=== PATIENT | male | born 1975 | race Caucasian/White ===

== ENCOUNTER 2024-02-11 18:22 | Emergency (ER) | payer OTHER, SELFPAY ==
[2024-02-11 18:23] VITALS: BP 140/90; PULSE 84; RESP 16; TEMP 36.7; O2SAT 95; BMI 34.7
--- NOTE | 2024-02-11 18:42 | EKG12_ITS ---
Test Reason : DYSRHYTHMIA Blood Pressure : / mmHG Vent. Rate : 086 BPM Atrial Rate : 086 BPM P-R Int : 136 ms QRS Dur : 106 ms QT Int : 380 ms P-R-T Axes : 041 057 014 degrees QTc Int : 454 ms Normal sinus rhythm ST & T wave abnormality, consider inferior ischemia ST & T wave abnormality, consider anterolateral ischemia Abnormal ECG No previous ECGs available Confirmed by CA PETERSEN, JEANETTE ([id number]), social media editor BILLIE ROTHMAN ([id number]) on 02/15/2024 11:29:41 AM Referred By: Confirmed By:JEANETTE PENALOZA MD
--- NOTE | 2024-02-11 18:45 | EDS_ITS ---
HPI <GABE Mullen - Last Filed: 02/11/24 19:53> History of Present Illness Chief Complaint: Syncope Narrative Narrative: Patient is a 48-year-old male with history of depression who presents to the emergency department for passing out after coughing. Patient states has been sick for the last couple days, he went to urgent care today, was placed on a Z- Ivan as well as some Tessalon Perles. Patient has had 2 episodes that were witnessed where he coughed so hard he has a syncopal episode. The is concerned and is here for evaluation. Patient Nuys any fever chills nausea or vomiting. PFSH <GABE Mullen - Last Filed: 02/11/24 19:53> [facility] Medical History (Updated 02/11/24 @ 19:51 by GABE Mullen) Sleep apnea Major depression Hand fracture Hypertension Asthma Home Medications ?Medication ?Instructions ?Recorded ?Last Taken ?Type diltiazem HCl 180 mg 180 mg PO DAILY 04/30/23 Unknown History capsule,extended release 24 hr levothyroxine 75 mcg tablet mcg PO 04/30/23 Unknown History loratadine 10 mg tablet (Claritin) 10 mg PO DAILY 04/30/23 Unknown History omeprazole 40 mg capsule,delayed 40 mg PO DAILY 04/30/23 Unknown History release fluoxetine 40 mg capsule 40 mg PO DAILY 90 days #90 caps 02/01/24 Unknown Rx lamotrigine 100 mg tablet 250 mg (2.5 x 100 mg) PO DAILY 90 02/01/24 Unknown Rx days #225 tabs albuterol sulfate 90 mcg/actuation 2 puff inhalation Q4H PRN PRN 02/11/24 Unknown Rx aerosol inhaler (Ventolin HFA) Wheezing #1 pump Allergy/AdvReac Type Severity Reaction Status Date / Time Penicillins Allergy Severe Swelling Verified 02/11/24 18:25 Family History Other Asthma Hypertension Mental disorder Surgical History Hx of appendectomy Social History Smoking Status: Never smoker alcohol intake: never substance use type: does not use what type of physical activity do you participate in: none ROS <GABE Mullen - Last Filed: 02/11/24 19:53> ROS ED ROS Narrative Constitutional: Negative for fever, chills, weight loss, weakness Eyes: Negative for vision loss, vision change, double vision ENT: Negative for any sore throat, ear pain, congestion Cardiovascular: Negative for any chest pain, tightness, palpitations Respiratory: Negative for any sputum production, hemoptysis, dyspnea, dyspnea on exertion, orthopnea. Positive for cough Gastrointestinal: Negative for any abdominal pain, nausea, vomiting, diarrhea, constipation, blood in stool, blood in vomit : Negative for any urinary frequency, dysuria, retention, blood in urine Muscle skeletal: Negative for any neck pain, back pain Neurological: Negative for any headache,dizziness. Positive for cough, syncope Skin: Negative for any rashes, itching, abrasions, lacerations Psychiatric: Negative for any depression, anxiety, stress, suicidal ideation, homicidal ideation Hematologic: Negative for any excessive bruising, easy bleeding EXAM <GABE Mullen - Last Filed: 02/11/24 19:53> Physical Exam Narrative Exam Narrative: Vital signs reviewed. HEET: Head normocephalic atraumatic, TMs clear bilaterally. Posterior pharynx is clear, moist mucous membranes. Nares clear bilaterally. Neck: Supple with no lymphadenopathy or tenderness. No signs of meningismus. Cardiac: Regular rate and rhythm no murmurs gallops or rubs, equal peripheral pulses bilaterally. Respiratory: Lungs clear to auscultation bilaterally. No chest tenderness. Abdomen: Soft, nontender, nondistended. No abdominal bruit or pulsatile masses. No hepatosplenomegaly Extremities: No peripheral edema, no signs of gross trauma or deformity. Active full range of motion of all extremities. Neuro: Cranial nerves II through XII intact, no focal neurological deficits. Skin: Clean dry and intact with no rash, purpura, petechiae, vesicles or pustul es. Backs/flank: No CVA tenderness, no midline spinal tenderness, no deformity. Psych: Normal mood and affect. No SI, HI or acute psychosis. Const Vital Signs: 02/11/24 18:23 02/11/24 19:01 02/11/24 19:02 Temperature 98.1 F Temperature Source Temporal Pulse Rate 84 Respiratory Rate 16 Respiratory Effort Normal Non-Labored Respiratory Pattern Normal Blood Pressure 140/90 H Blood Pressure Mean 106 Pulse Ox 95 Oxygen Delivery Method Room Air Room Air <Dr. Lew Tineo MD - Last Filed: 02/11/24 19:14> Physical Exam Const Vital Signs: 02/11/24 18:23 02/11/24 19:01 02/11/24 19:02 Temperature 98.1 F Temperature Source Temporal Pulse Rate 84 Respiratory Rate 16 Respiratory Effort Normal Non-Labored Respiratory Pattern Normal Blood Pressure 140/90 H Blood Pressure Mean 106 Pulse Ox 95 Oxygen Delivery Method Room Air Room Air MDM <GABE Mullen - Last Filed: 02/11/24 19:53> [facility] [place] Lab Data Labs: Laboratory Results - last 24 hr 02/11/24 18:57 WBC 10.0 RBC 5.14 Hgb 14.1 Hct 42.5 MCV 82.7 MCH 27.4 MCHC 33.2 RDW Std Deviation 43.5 RDW Coeff of Gigi 14.5 Plt Count 313 MPV 9.2 Immature Gran % (Auto) 0.600 Neut % (Auto) 60.1 Lymph % (Auto) 25.1 [place] % (Auto) 8.5 Eos % (Auto) 5.0 Baso % (Auto) 0.7 Absolute Neuts (auto) 6.0 Absolute Lymphs (auto) 2.51 Nucleated RBC % 0 Sodium 137 Potassium 3.7 Chloride 107 Carbon Dioxide 25.0 Anion Gap 5 BUN 22 H Creatinine 0.99 Estim Creat Clear Calc 110.98 Est GFR (MDRD) Af Amer 103 Est GFR (MDRD) Non-Af 86 BUN/Creatinine Ratio 22.1 H Glucose 144 H Calcium 8.7 Troponin I High Sens 21 EKG EKG shows normal sinus rhythm: Attestation: I personally reviewed and interpreted this EKG as follows: Comments: Normal sinus rhythm, rate of 86 bpm, OK 136 ms, QRS duration 26 ms, no acute ST elevation, no acute infarct noted. Treatment and Re-Evaluation :: Differential diagnosis includes however is not limited to: Posttussive syncope, cardiac arrhythmia, ACS, CO, pneumonia Patient appears to be in no obvious respiratory distress, vital signs are stable. Patient presents to the emergency department with complaints of posttussive syncope x 2. Diagnosed with pneumonia earlier today, placed on Z- Ivan as well as cough suppressant. Patient will receive a cardiac workup to ensure that there is no arrhythmia, cardiac reason for syncope, two-view chest x-ray will be obtained. Breathing treatments will be ordered. All radiologic examinations were read, reviewed by the emergency department attending. From these reads, a plan of care will be put in place. Patient's chest x-ray does show some haziness left lower lobe, this is what they called at the urgent care. Patient's laboratory values were normal CBC, chemistries were unremarkable, troponin was negative. EKG was unremarkable. No evidence of cardiopulmonary disease. At this time, I do believe the patient is suffering from pertussis syncope. Patient will receive an albuterol inhaler. Instructed return for any worsening symptoms. Patient will follow-up outpatient. <Dr. Lew Tineo MD - Last Filed: 02/11/24 19:14> [facility] Narrative Medical decision making narrative: I have personally performed a face to face assessment of the patient and have reviewed the LEONORA Note. I performed a substantive portion of the visit including all aspects of the following. My weldon findings include: History is [48-year-old male diagnosed with pneumonia today placed on Zithromax. Also has had cough syncope x 2. He is also had that in the past. Does not necessarily new today. Denies any chest pain. Denies any vomiting or diarrhea.] Exam is [well-appearing middle-age male. Vital signs stable afebrile. Pulse ox 95% on room air no hypoxia. H EENT exam unremarkable. Moist use membranes. Lungs coarse breath sounds. No rales or rhonchi. Heart regular rhythm rate about 80 no murmur. Chest wall and ribs nontender. Abdomen soft nontender. Moving all 4 extremities. Calves are nontender without edema or cords. Neurologically is awake and alert no focal motor deficits. Answering questions following commands. Normal motor strength.] Medical Decision Making [48-year-old male being evaluated for possible pneumonia. Chest x-ray and labs are pending. Other additions or changes: [None] Lab Data Labs: Laboratory Results - last 24 hr 02/11/24 18:57 WBC 10.0 RBC 5.14 Hgb 14.1 Hct 42.5 MCV 82.7 MCH 27.4 MCHC 33.2 RDW Std Deviation 43.5 RDW Coeff of Gigi 14.5 Plt Count 313 MPV 9.2 Immature Gran % (Auto) 0.600 Neut % (Auto) 60.1 Lymph % (Auto) 25.1 [place] % (Auto) 8.5 Eos % (Auto) 5.0 Baso % (Auto) 0.7 Absolute Neuts (auto) 6.0 Absolute Lymphs (auto) 2.51 Nucleated RBC % 0 Sodium 137 Potassium 3.7 Chloride 107 Carbon Dioxide 25.0 Anion Gap 5 BUN 22 H Creatinine 0.99 Estim Creat Clear Calc 110.98 Est GFR (MDRD) Af Amer 103 Est GFR (MDRD) Non-Af 86 BUN/Creatinine Ratio 22.1 H Glucose 144 H Calcium 8.7 Troponin I High Sens 21 Radiography Chest X-Ray - ED: 1 View and Read by ED Physician Discharge Plan Triage Chief Complaint: Syncope ED Midlevel Provider: Maurilio Christensen ED Provider: Lew Tineo Dx/Rx/DC Orders Clinical Impression: Cough, Syncope Instructions: Causes of Syncope, ED Cough Chronic Uncertain Cause Adult Prescriptions: New albuterol sulfate [Ventolin HFA] 90 mcg/actuation HFA aerosol inhaler 2 puff inhalation Q4H PRN PRN (Reason: Wheezing) Qty: 1 0RF No Action levothyroxine 75 mcg tablet PO diltiazem HCl 180 mg capsule,extended release 24hr 180 mg PO DAILY omeprazole 40 mg capsule,delayed release(DR/EC) 40 mg PO DAILY loratadine [Claritin] 10 mg tablet 10 mg PO DAILY fluoxetine 40 mg capsule 40 mg PO DAILY 90 Days Qty: 90 1RF lamotrigine 100 mg tablet 250 mg PO DAILY 90 Days Qty: 225 1RF Primary Care Provider: Godwin Mcghee Referrals: Care Physician,No Primary [Non-Staff] - Print Language: Brazilian Disposition Disposition: Home, Self Care
[2024-02-11 18:50] VITALS: PULSE 93; RESP 16
[2024-02-11] MEDS: Ipratropium/Albuterol Sulfate 3 ML AMPUL.NEB INHALATION (18:50)
[2024-02-11] MEDS: Albuterol 2.5 MG/3 ML VIAL.NEB. INHALATION ×3 (18:57→19:17)
[2024-02-11 19:06] LABS: Absolute Lymphocyte Count 2.51 X10^3/uL (0.83-4.51); Basophil# 0.07 X10^3/uL; Basophil% 0.7 % (0-1); Hematocrit 42.5 % (40-54); Hemoglobin 14.1 g/dL (13.0-16.5); Lymphocyte # 2.51 X10^3/ul (0.83-4.51); Lymphocyte % 25.1 % (19-41); Mean Corp Hgb Conc 33.2 g/dL (32-36); Mean Corpuscular Hgb 27.4 pg (27.0-32.0); Mean Corpuscular Volume 82.7 fL (80-94); Mean Platelet Vol. 9.2 fl (6.2-12.0); Monocyte# 0.85 X10^3/uL; Monocyte% 8.5 % (0-10); NRBC Flagged by Analyzer 0 % (0-5); Neutrophil # 6.01 X10^3/uL (2.7-7.7); Neutrophil % 60.1 % (47-70); Platelet Count 313 K/mm3 (150-450); RBC Distribution Width CV 14.5 % (11.6-14.6); RBC Distribution Width SD 43.5 fl (35.1-43.9); Red Blood Count 5.14 M/mm3 (4.6-6.2)
[2024-02-11 19:34] LABS: Anion Gap 5 (5-15); BUN 22 mg/dL (7-18); BUN/Creat Ratio 22.1 RATIO (10-20); Calcium,Total 8.7 mg/dL (8.5-10.1); Chloride 107 mmol/L (98-107); Creatinine, Serum 0.99 mg/dL (0.70-1.30); EST Glomerular Filtration Rate 86 mL/min (>60); Est Glom Filt Rate - Afr Amer 103 mL/min (>60); Estimated Creatinine Clearance 110.98 ml/min; Glucose 144 mg/dL (74-106); Potassium 3.7 mmol/L (3.5-5.1); Sodium Level 137 mmol/L (136-145); Troponin-I HS 21 pg/mL (3.0-78.0)
--- NOTE | 2024-02-11 19:38 | RAD_ITS ---
STUDY: X-RAY CHEST REASON FOR EXAM: Male, 48 years old. cough TECHNIQUE: PA and lateral COMPARISON: None. FINDINGS: Elevated left hemidiaphragm and minor basilar atelectasis or scarring.. There is no demonstrated pleural abnormality. Normal size heart. Normal mediastinum and karen. Normal visualized pulmonary arteries. Normal visualized aortic arch and descending thoracic aorta. Normal visualized thoracic spine. Normal visualized ribs, clavicles, and shoulders. Nonspecific bowel distention within the upper abdomen. RAD/Chest PA and Lateral IMPRESSION: Elevated left hemidiaphragm and minor basilar atelectasis or scarring in the left lower lobe.. Electronically Signed: Bam Guthrie MD at 19:51 EDT ,
[2024-02-11 19:54] VITALS: BP 140/88; PULSE 90; RESP 19; TEMP 36.8; O2SAT 94
--- NOTE | 2024-02-11 19:57 | CPS ---
x3 Albuterol given to pt. in ER as well
== END 2024-02-11 20:00 | disposition home or self-care (01) ==
PROVIDERS: Nurse Practitioner; Emergency Provider Emergency Medicine; PCP Family Medicine; Visit Provider Emergency Medicine
DX: R55 Syncope and collapse (principal); R05.9 Cough, unspecified; I10 Essential (primary) hypertension; F32.A Depression, unspecified; J45.909 Unspecified asthma, uncomplicated
CPT/HCPCS: 71046; 80048; 84484; 85025; 93005; 94640; 99285; A4216

== ENCOUNTER 2024-02-19 12:42 | Emergency (ER) | payer OTHER, SELFPAY ==
[2024-02-19 12:43] VITALS: BP 157/110; PULSE 92; RESP 16; TEMP 36.9; O2SAT 97; BMI 34.7
--- NOTE | 2024-02-19 12:52 | CT_ITS ---
STUDY: CT BRAIN WITHOUT CONTRAST REASON FOR EXAM: Male, 48 years old. Head injury RADIATION DOSAGE (If Supplied By Facility): CTDIvol = ( 47.06 ) mGy, DLP = ( 855.03 ) mGycm TECHNIQUE: Transaxial CT imaging of the brain was performed without administration of intravenous contrast material. Individualized dose optimization techniques were used for this CT. COMPARISON: No relevant priors. FINDINGS: Normal soft tissue structures. Normal calvarium. Normal size ventricles and extra-axial spaces for the patient''s age. Normal white matter tracts of the cerebral hemispheres. Normal basal ganglia and thalami. Normal brainstem. Normal cerebellum. There is no intracranial hemorrhage. There are no findings of an acute ischemic infarction. Partial opacification of the maxillary sinuses and ethmoid sinuses. CT/Brain/Head without Contrast IMPRESSION: Normal unenhanced CT scan of the brain. Partial opacification of maxillary and ethmoid sinuses. Electronically Signed: Alexander Jj MD at 13:28 EDT ,
--- NOTE | 2024-02-19 12:54 | CT_ITS ---
STUDY: CT CERVICAL SPINE WITHOUT CONTRAST REASON FOR EXAM: Male, 48 years old. Neck pain RADIATION DOSAGE (If Supplied By Facility): CTDIvol = ( 19.14 ) mGy, DLP = ( 409.43 ) mGycm TECHNIQUE: High resolution transaxial imaging was performed without contrast material. Sagittal and coronal images were reconstructed. Individualized dose optimization techniques were used for this CT. COMPARISON: None FINDINGS: Normal craniovertebral junction. Normal anterior atlantoaxial articulation. Normal odontoid process. There is straightening of the normal cervical lordosis. Normal vertebral bodies and posterior osseous elements. C2-3: Normal endplates. Normal disc height and morphology. Normal central canal and intervertebral neuroforamina. C3-4: Normal endplates. Normal disc height and morphology. Normal central canal and intervertebral neuroforamina. C4-5: Normal endplates. Normal disc height and morphology. Normal central canal and intervertebral neuroforamina. C5-6: Mild degree of disc space narrowing. Posterior spondylosis. No significant stenosis is seen. C6-7: Mild degree of disc space narrowing and spondylosis. No significant stenosis is seen. C7-T1: Normal endplates. Normal disc height and morphology. Normal central canal and intervertebral neuroforamina. Normal visualized soft tissue structures. CT/Spine Cervical without Contras IMPRESSION: Mild degenerative changes at the C5-C6 and C6-C7 levels. Electronically Signed: Alexander Jj MD at 13:51 EDT ,
--- NOTE | 2024-02-19 12:56 | EDS_ITS ---
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 He states he does not remember stumbling or tripping but woke up on the ground next to the truck. He has abrasions on his head and right ear. States he sat there for a while and then stood up and drove 30 minutes to a truck stop and called his to bring him in for evaluation. He denies any preceding symptoms this morning such as headache, chest pain, shortness of breath, or nausea or vomiting. He has had a recent URI states he coughed so much like a syncopal episode but the cough has been improving. He has a history of syncope in the past. He takes blood pressure medication. No blood thinners. [facility] <PABLO Brewer - Last Filed: 02/19/24 14:33> [facility] Medical History (Updated 02/19/24 @ 14:33 by PABLO Brewer) Sleep apnea Major depression Hand fracture Hypertension Asthma Home Medications ?Medication ?Instructions ?Recorded ?Last Taken ?Type levothyroxine 75 mcg tablet mcg PO 04/30/23 Unknown History loratadine 10 mg tablet (Claritin) 10 mg PO DAILY 04/30/23 Unknown History omeprazole 40 mg capsule,delayed 40 mg PO DAILY 04/30/23 Unknown History release fluoxetine 40 mg capsule 40 mg PO DAILY 90 days #90 caps 02/01/24 Unknown Rx lamotrigine 100 mg tablet 250 mg (2.5 x 100 mg) PO DAILY 90 02/01/24 Unknown Rx days #225 tabs albuterol sulfate 90 mcg/actuation 2 puff inhalation Q4H PRN PRN 02/11/24 Unknown Rx aerosol inhaler (Ventolin HFA) Wheezing #1 pump naproxen 500 mg tablet (Naprosyn) 500 mg PO BID PRN pain #20 tabs 02/19/24 Unknown Rx Allergy/AdvReac Type Severity Reaction Status Date / Time Penicillins Allergy Severe Swelling Verified 02/19/24 12:56 Family History Other Asthma Hypertension Mental disorder Surgical History Hx of appendectomy Social History Smoking Status: Never smoker alcohol intake: never substance use type: does not use what type of physical activity do you participate in: none ROS <PABLO Brewer - Last Filed: 02/19/24 14:33> ROS ED ROS Narrative Eyes: Negative for visual change. CVS: Negative for palpitations, chest pain. Respiratory: Negative for shortness of breath. GI: Negative for abdominal pain, nausea, vomiting. Neuro: Positive for headache. EXAM <PABLO Brewer - Last Filed: 02/19/24 14:33> Physical Exam Narrative Exam Narrative: CONST: Patient sitting in no acute distress. EYES: Normal inspection. PERRL, EOMI. ENT: Abrasion on the right parietal scalp and on the right external ear. No lacerations, no deformity or crepitus, no raccoon eyes or Burks sign, no epistaxis or nasal septal hematoma, no hemotympanum, no CSF otorrhea or rhinorrhea. NECK: Normal inspection. Cervical midline tenderness without step-offs. RESP: No respiratory distress, CTAB. Chest wall nontender. CVS: Regular rate and rhythm, no murmur, no gallop. ABD: Soft and nontender, no guarding or rebound, nondistended. Back: Normal inspection, no midline tenderness. SKIN: Color normal, warm, dry, intact. EXTREMITIES: Normal appearance of upper and lower extremities, full range of motion, mild tenderness right shoulder, 2+ radial and DP pulses. NEURO: Alert and answering questions appropriately. PSYCH: Normal affect. Const Vital Signs: 02/19/24 12:43 02/19/24 12:56 02/19/24 14:06 Temperature 98.4 F Temperature Source Temporal Pulse Rate 92 Pulse Rate [Lying] 80 Pulse Rate [Sitting (for 1 minute prior to obtaining)] 82 Pulse Rate [Standing (for 1 minute prior to obtaining)] 87 Respiratory Rate 16 Respiratory Effort Normal Non-Labored Respiratory Depth Normal Respiratory Pattern Normal Blood Pressure 157/110 H Blood Pressure [Lying] 138/98 H Blood Pressure [Sitting (for 1 minute prior to obtaining)] 135/99 H Blood Pressure [Standing (for 1 minute prior to obtaining)] 132/103 H Blood Pressure Mean 125 Blood Pressure Mean [Lying] 111 Blood Pressure Mean [Sitting (for 1 minute prior to obtaining)] 111 Blood Pressure Mean [Standing (for 1 minute prior to obtaining)] 112 Pulse Ox 97 Oxygen Delivery Method Room Air Room Air 02/19/24 14:43 Temperature 97.3 F L Temperature Source Pulse Rate 84 Pulse Rate [Lying] Pulse Rate [Sitting (for 1 minute prior to obtaining)] Pulse Rate [Standing (for 1 minute prior to obtaining)] Respiratory Rate 18 Respiratory Effort Respiratory Depth Respiratory Pattern Blood Pressure 141/102 H Blood Pressure [Lying] Blood Pressure [Sitting (for 1 minute prior to obtaining)] Blood Pressure [Standing (for 1 minute prior to obtaining)] Blood Pressure Mean 115 Blood Pressure Mean [Lying] Blood Pressure Mean [Sitting (for 1 minute prior to obtaining)] Blood Pressure Mean [Standing (for 1 minute prior to obtaining)] Pulse Ox 100 Oxygen Delivery Method <Dr. Victorino Ward, DO - Last Filed: 02/19/24 15:34> Physical Exam Const Vital Signs: 02/19/24 12:43 02/19/24 12:56 02/19/24 14:06 Temperature 98.4 F Temperature Source Temporal Pulse Rate 92 Pulse Rate [Lying] 80 Pulse Rate [Sitting (for 1 minute prior to obtaining)] 82 Pulse Rate [Standing (for 1 minute prior to obtaining)] 87 Respiratory Rate 16 Respiratory Effort Normal Non-Labored Respiratory Depth Normal Respiratory Pattern Normal Blood Pressure 157/110 H Blood Pressure [Lying] 138/98 H Blood Pressure [Sitting (for 1 minute prior to obtaining)] 135/99 H Blood Pressure [Standing (for 1 minute prior to obtaining)] 132/103 H Blood Pressure Mean 125 Blood Pressure Mean [Lying] 111 Blood Pressure Mean [Sitting (for 1 minute prior to obtaining)] 111 Blood Pressure Mean [Standing (for 1 minute prior to obtaining)] 112 Pulse Ox 97 Oxygen Delivery Method Room Air Room Air 02/19/24 14:43 Temperature 97.3 F L Temperature Source Pulse Rate 84 Pulse Rate [Lying] Pulse Rate [Sitting (for 1 minute prior to obtaining)] Pulse Rate [Standing (for 1 minute prior to obtaining)] Respiratory Rate 18 Respiratory Effort Respiratory Depth Respiratory Pattern Blood Pressure 141/102 H Blood Pressure [Lying] Blood Pressure [Sitting (for 1 minute prior to obtaining)] Blood Pressure [Standing (for 1 minute prior to obtaining)] Blood Pressure Mean 115 Blood Pressure Mean [Lying] Blood Pressure Mean [Sitting (for 1 minute prior to obtaining)] Blood Pressure Mean [Standing (for 1 minute prior to obtaining)] Pulse Ox 100 Oxygen Delivery Method [facility] <PABLO Brewer - Last Filed: 02/19/24 14:33> [facility] Narrative Medical decision making narrative: History gathered from: Patient and spouse Differential: Closed head injury, skull fracture, intracranial hemorrhage Patient fell and has a scalp abrasion and right shoulder injury. He is not clear why he fell but denies any preceding symptoms. Injury occurred over 2 hours ago. He is awake and alert and ambulated into the ED. GCS 15. He has chronic hypertension and vital signs are stable. There is a right scalp and ear abrasion with no lacerations or signs of basilar skull fracture. He is also tender over the right distal clavicle and shoulder with full range of motion and neurovascularly intact. No other injuries. CT scans of the head/neck are negative. Chest x-ray and right shoulder show no acute traumatic injuries. He was given tetanus, Tylenol, and Norflex. Wound was cleansed and bandaged. Patient had an ED visit a week ago after an episode of cough syncope I reviewed his labs at that time had normal CBC, BMP, troponin and EKG. orthostatic vital signs are negative. With a recent negative workup I don't think he needs repeat labs as he did not clearly syncopize today but he is not sure why he fell. I ordered a 48-hour Holter monitor which was placed at discharge and results will be sent to his primary care doctor. He was discharged in stable condition. Radiography Diagnostic Testing: Clinical Impression(s) from Imaging Studies Brain CT 02/19/24 12:52 IMPRESSION: Normal unenhanced CT scan of the brain. Partial opacification of maxillary and ethmoid sinuses. Electronically Signed: Alexander Jj MD at 13:28 EDT , Cervical Spine CT 02/19/24 12:54 IMPRESSION: Mild degenerative changes at the C5-C6 and C6-C7 levels. Electronically Signed: Alexander Jj MD at 13:51 EDT , Chest X-Ray 02/19/24 13:32 IMPRESSION: Stable examination. Mild linear atelectasis at the lung bases. Electronically Signed: Alexander Jj MD at 13:59 EDT , Shoulder X-Ray 02/19/24 13:32 IMPRESSION: Mild degree of arthrosis of the right glenohumeral joint. Electronically Signed: Alexander Jj MD at 13:58 EDT , ED attending interpretation of 2 view chest x-ray shows no evidence of displaced rib fracture or pneumothorax. ED attending interpretation of right shoulder shows no fracture or dislocation. <Dr. Victorino Ward, DO - Last Filed: 02/19/24 15:34> [facility] MDM Narrative Medical decision making narrative: History gathered from: Patient and spouse Differential: Closed head injury, skull fracture, intracranial hemorrhage Patient fell and has a scalp abrasion and right shoulder injury. He is not clear why he fell but denies any preceding symptoms. Injury occurred over 2 hours ago. He is awake and alert and ambulated into the ED. GCS 15. He has chronic hypertension and vital signs are stable. There is a right scalp and ear abrasion with no lacerations or signs of basilar skull fracture. He is also tender over the right distal clavicle and shoulder with full range of motion and neurovascularly intact. No other injuries. CT scans of the head/neck are negative. Chest x-ray and right shoulder show no acute traumatic injuries. He was given tetanus, Tylenol, and Norflex. Wound was cleansed and bandaged. Patient had an ED visit a week ago after an episode of cough syncope I reviewed his labs at that time had normal CBC, BMP, troponin and EKG. orthostatic vital signs are negative. With a recent negative workup I don't think he needs repeat labs as he did not clearly syncopize today but he is not sure why he fell. I ordered a 48-hour Holter monitor which was placed at discharge and results will be sent to his primary care doctor. He was discharged in stable condition. This patient was seen with a PA/INTAKE COUNSELOR Individually assessed they patient including history and physical. I have reviewed everything on the chart that is available and agree with the documentation provided by the PA/INTAKE COUNSELOR including discussion about the assessment, treatment plan, discussion, and return precautions. Pablo valentínjohnny presenting after falling out of a truck. He states this is a tractor- trailer. He is not sure exactly why he fell but he does have a history of coughing and syncope. He does not know if he coughed and fainted and is amnestic of the event because he hit his head. Patient was recently treated for pneumonia with antibiotics and feels better overall. He has not had any chest pain or shortness of breath. He does have an abrasion to the scalp on the right side and no other evidence of basilar skull fracture. Is alert and awake with a GCS of 15. He had some right-sided neck pain but nothing midline and there are no deformities of the cervical spine. Also has tenderness to palpation of the posterior right shoulder but no evidence of rotator cuff tear and his shoulder is stable. Full range of motion. Obtained images of the right shoulder and chest x-ray. On my interpretation both these are negative. CT brain and cervical spine were obtained and these were both negative as well for acute findings.. Orthostatic vital signs are negative although patient has headache and the feeling of dizziness when he stands up and I do believe he has a concussion. Despite further patient stable for discharge. UTI recommended Tylenol and ibuprofen. Radiography Diagnostic Testing: Clinical Impression(s) from Imaging Studies Brain CT 02/19/24 12:52 IMPRESSION: Normal unenhanced CT scan of the brain. Partial opacification of maxillary and ethmoid sinuses. Electronically Signed: Alexander Jj MD at 13:28 EDT , Cervical Spine CT 02/19/24 12:54 IMPRESSION: Mild degenerative changes at the C5-C6 and C6-C7 levels. Electronically Signed: Alexander Jj MD at 13:51 EDT , Chest X-Ray 02/19/24 13:32 IMPRESSION: Stable examination. Mild linear atelectasis at the lung bases. Electronically Signed: Alexander Jj MD at 13:59 EDT , Shoulder X-Ray 02/19/24 13:32 IMPRESSION: Mild degree of arthrosis of the right glenohumeral joint. Electronically Signed: Alexander Jj MD at 13:58 EDT , Discharge Plan Triage Chief Complaint: Fall ED Midlevel Provider: Sunni Swann ED Provider: Victorino Ward Dx/Rx/DC Orders Clinical Impression: Abrasion of scalp, Contusion of right shoulder, Concussion Instructions: Bruises (Contusions), ED Head Injury (Adult) Prescriptions: New naproxen [Naprosyn] 500 mg tablet 500 mg PO BID PRN (Reason: pain) Qty: 20 0RF No Action levothyroxine 75 mcg tablet PO omeprazole 40 mg capsule,delayed release(DR/EC) 40 mg PO DAILY loratadine [Claritin] 10 mg tablet 10 mg PO DAILY albuterol sulfate [Ventolin HFA] 90 mcg/actuation HFA aerosol inhaler 2 puff inhalation Q4H PRN PRN (Reason: Wheezing) Qty: 1 0RF fluoxetine 40 mg capsule 40 mg PO DAILY 90 Days Qty: 90 1RF lamotrigine 100 mg tablet 250 mg PO DAILY 90 Days Qty: 225 1RF Primary Care Provider: Godwin Mcghee Referrals: Godwin Mcghee MD [Primary Care Provider] - Activity Restrictions/Additional Instructions: The CT scans of your head and neck and x-rays of your chest and right shoulder show no broken bones or internal bleeding from today's fall. Since you have had several fainting episodes a 48-hour heart monitor was placed. The results will be sent to your primary care doctor's office. Please call them to schedule a follow-up appointment. Print Language: Turkmen Disposition Disposition: Home, Self Care Discharge Date/Time: 02/19/24 14:47
[2024-02-19] MEDS: Diphth,Pertuss(Acell),Tet Vac 0.5 ML Vial IM (13:09)
--- NOTE | 2024-02-19 13:32 | RAD_ITS ---
STUDY: X-RAY - RIGHT SHOULDER REASON FOR EXAM: Male, 48 years old. Right shoulder pain following a fall. TECHNIQUE: 4 view(s) of the shoulder. COMPARISON: None. FINDINGS: There is mild degenerative arthrosis of the glenohumeral articulation. Normal acromioclavicular joint. Normal acromion. Normal humeral head and visualized proximal humerus. The soft tissue structures are unremarkable. Normal visualized pulmonary apex. RAD/Shoulder min 2 Views IMPRESSION: Mild degree of arthrosis of the right glenohumeral joint. Electronically Signed: Alexander Jj MD at 13:58 EDT ,
--- NOTE | 2024-02-19 13:32 | RAD_ITS ---
STUDY: X-RAY CHEST REASON FOR EXAM: Male, 48 years old. Fall TECHNIQUE: PA and lateral views of the chest. COMPARISON: Comparison is made with prior study dated February 11, 2024. FINDINGS: Stable minimal increased linear markings at the lung bases suggestive of a mild basilar atelectasis. There is no demonstrated pleural abnormality. Normal size heart. Normal mediastinum and karen. Normal visualized pulmonary arteries. Normal visualized aortic arch and descending thoracic aorta. Normal visualized thoracic spine. Normal visualized ribs, clavicles, and shoulders. There is no demonstrated abnormality of the visualized soft tissue structures of the upper abdomen. RAD/Chest PA and Lateral IMPRESSION: Stable examination. Mild linear atelectasis at the lung bases. Electronically Signed: Alexander Jj MD at 13:59 EDT ,
[2024-02-19] MEDS: Orphenadrine 100 MG Tablet PO (13:41)
[2024-02-19] MEDS: Acetaminophen 500 MG Tablet 1000 MG PO (13:41)
[2024-02-19 14:06] VITALS: BP 132/103; BP 135/99; BP 138/98; PULSE 80; PULSE 82; PULSE 87
[2024-02-19 14:43] VITALS: BP 141/102; PULSE 84; RESP 18; TEMP 36.3; O2SAT 100
== END 2024-02-19 14:47 | disposition home or self-care (01) ==
PROVIDERS: Emergency Provider Student in an Organized Health Care Education/Training Program; PCP Family Medicine; Visit Provider Student in an Organized Health Care Education/Training Program
DX: S06.0X0A Concussion without loss of consciousness, initial encounter (principal); S40.011A Contusion of right shoulder, initial encounter; S00.01XA Abrasion of scalp, initial encounter; I10 Essential (primary) hypertension; J45.909 Unspecified asthma, uncomplicated; F32.A Depression, unspecified; W17.89XA Other fall from one level to another, initial encounter
CPT/HCPCS: 70450; 71046; 72125; 73030; 90715; 99283

== ENCOUNTER → 2024-02-19 | Outpatient (CLI) | payer OTHER, SELFPAY | END | disposition home or self-care (01) | LOC: PSN 13:51 | PROVIDERS: PCP Family Medicine; Visit Provider Family Medicine | DX: R55 Syncope and collapse (principal) | CPT/HCPCS: 93225; 93226 ==